=== PATIENT | female | born 1940 | race Caucasian/White ===

== ENCOUNTER 2017-10-04 09:34 | Inpatient (IN) | payer MEDICARE, MEDICAID ==
[~2017-10-04] VITALS: Ht 167.6 cm; Wt 92.0 kg
[~2017-10-04 09:34] MED LIST: AMOXICILLIN500 MG PO; ASPIRIN EC81 MG PO; BACTROBAN2 % EX; BAYER CHEWABLE81 MG PO; DIAZEPAM10 MG OR; DIAZEPAM10 MG PO; FAMOTIDINE20 M1 PO; FLUZONE PEDIATR1 INJ IM; KENALOG-4040 MG/ML IA; LISINOPRIL10 MG PO; LISINOPRIL2.5 MG PO; LOVASTATIN10 MG PO; METFORMIN500 M2 PO; METOPROL TAR25 MG PO; MOTRIN800 MG/TAB PO; NAPROSYN500 MG PO; NITROGLYCER0.4 MG SL; NORCO1 TA1 PO; OMEPRAZOLE20 MG PO; ONE TOUCH ULTRA 100 SC; ONE TOUCH ULTRA LANC SC; PAROXETINE20 MG PO; PAXIL30 MG PO; SIMVASTATIN20 MG PO
--- NOTE | 2017-10-04 09:59 | NUR ---
PT TO WAITING ROOM, ADVISED OF BUSY ER STATUS
--- NOTE | 2017-10-04 10:02 | NUR ---
Pt to room # 8 via W/C
--- NOTE | 2017-10-04 10:30 | NUR ---
INTRODUCED SELF TO PT AND VISITOR. PT REPORTS GENERALIZED ABD PAIN AND N/V STARTING LAST NIGHT. PT REPORTS SIMILIAR SYMPTOMS AND EXPLAINED A SMALL BOWEL OBSTRUCTION. PT ABD SOFT, TENDER TO THE R QUADRENTS. BS HYPOACTIVE. PT AWARE OF PROBABLE PLAN OF CARE AND WAIT TIME. CALL LU WITHIN REACH, WILL CONTINUE TO MONITOR.
[2017-10-04 10:56] LABS: HEMATOCRIT 51.8 % (37.0-47.0); HEMOGLOBIN 17.4 g/dl (12.0-16.0); IMMATURE GRANULOCYTES 0.6 % (0.0-1.0); MEAN CELL VOLUME 89.8 fL CALC (80.0-100.0); MEAN CORPUSCULAR HGB 30.2 pG CALC (26.0-32.0); MEAN CORPUSCULAR HGB CONC 33.6 g/L CALC (32.0-36.0); NEUT# 12.63 thou/uL (2.00-7.15); RED BLOOD COUNT 5.77 mill/uL (4.20-5.60); RED CELL DISTRI WIDTH 13.7 % (11.5-15.5)
--- NOTE | 2017-10-04 11:10 | NUR ---
PT RETURNED FROM CT AND MEDICATED WITH 4 MG OF ZOFRAN IVP AND IV FLUIDS INITIATED. PT RESTING COMFORTABLY IN STRETCHER IN NAD. WILL CONTINUE TO MONITOR. CALL LU WITHIN REACH.
[2017-10-04 11:37] LABS: ALBUMIN 4.9 g/dL (3.2-5.0); ALKALINE PHOSPHATASE 97 u/l (38-126); AMYLASE 68 u/l (30-110); ANION GAP 21 (6-22 (CALC)); BILIRUBIN, TOTAL 0.7 mg/dL (0.0-1.4); BUN 32 mg/dL (8-23); BUN/CREATININE RATIO 22 (12-20 (CALC)); CALCIUM 10.9 mg/dL (8.4-10.2); CARBON DIOXIDE 20 mmol/l (22-30); CHLORIDE 106 mmol/l (95-108); CREATININE 1.4 mg/dL (0.5-1.0); GFR 36 ML/MIN (>=60 (CALC)); GFR FOR AFR.AMER. 44 ML/MIN (>=60 (CALC)); GLUCOSE 236 mg/dL (82-115); LIPASE 78 u/l (23-300); SGOT/AST 25 u/l (9-36); SGPT/ALT 23 u/l (11-66); SODIUM 142 mmol/l (137-146)
--- NOTE | 2017-10-04 11:39 | NUR ---
PT RESTING COMFORTBALY IN STRETCHER WITH EYES CLOSED, PT AWAKENS TO VERBAL STIMULI AND DENIES ANY NEEDS AT THIS TIME. CALL LU WITHIN REACH, WILL CONTINUE TO MONITOR.
[2017-10-04 11:49] LABS: MYOGLOBIN 96 ng/mL (0 - 62)
--- NOTE | 2017-10-04 12:10 | NUR ---
MD AWARE OF ELEVATED LACTIC AND WBC, AWAITING NEW ORDERS.
--- NOTE | 2017-10-04 12:22 | NUR ---
AT [facility] TO DISCUSS RESULTS AND PLAN OF CARE.
--- NOTE | 2017-10-04 13:00 | NUR ---
PT AWARE OF RESULTS AND PLAN FOR ADMISSION AND PLACEMENT OF NG TUBE. PT DENIES ANY NAUSEA AT THIS TIME. WILL CONTINUE TO MONITOR.
--- NOTE | 2017-10-04 13:23 | NUR ---
SBAR PRINTED TO FLOOR
--- NOTE | 2017-10-04 14:00 | NUR ---
16F NG TUBE PLACED IN LEFT NARES. PT TOLERATED WELL. PLACEMENT CONFIRMED BY AUSCULTATION AND AWAITING XRAY TO CONFIRM PLACEMENT. WILL CONTINUE TO MONITOR.
--- NOTE | 2017-10-04 14:10 | NUR ---
PATIENT VOMITED X 1. SUCTIONS TURNED ON AND 400 MLS OF YELLOW BILE COLORED FLUID NOTED.
--- NOTE | 2017-10-04 14:13 | NUR ---
DR DWYER AT BEDSIDE.
--- NOTE | 2017-10-04 14:22 | NUR ---
REPORT CALLED TO MARANDA NEVILLE IN [place].
--- NOTE | 2017-10-04 14:50 | NUR ---
Received pt from ER via stretcher. Pt alert and oriented. NG tube inserted in left nare. Connected to LIS no drainage in canister noted, small amount of greenish colored drainage noted in NG tube. Pt denies any discomfort at the moment. IV fluids infusing without difficulty. Site without redness or edema noted. Instructed pt on room arrangement and call light. Will continue to monitor patient. Call light within reach.
--- NOTE | 2017-10-04 14:55 | NUR ---
Admission Note Report Given to: LIGIA Transported by: Wheelchair X Stretcher Transported with: X Nurse Transporter X Patent IV O2 Ruffler
[2017-10-04 15:45] VITALS: BP 188/99
--- NOTE | 2017-10-04 18:10 | NUR ---
Daughter at bedside. No change in condition. NG tube to LIS no drainage in container, small amount noted in NG tube. Call light within reach.
[2017-10-04 18:15] LABS: URINE BILIRUBIN - DIPSTICK NEGATIVE (NEGATIVE); URINE BLOOD DIPSTICK NEGATIVE (NEGATIVE); URINE COLOR YELLOW; URINE GLUCOSE - DIPSTICK NEGATIVE (NEGATIVE); URINE KETONE NEGATIVE (NEGATIVE); URINE LEUK ESTERASE NEGATIVE (NEGATIVE); URINE PROTEIN - DIPSTICK TRACE mg/dL (NEG-TRACE); URINE SPECIFIC GRAVITY >=1.030; URINE UROBILINOGEN - DIPSTICK 0.2 E.U./dL (0.2)
[2017-10-04 18:16] LABS: URINE CLARITY CLOUDY; URINE NITRITE - DIPSTICK POSITIVE (Negative)
[2017-10-04 18:21] LABS: URINE BACTERIA FEW hpf; URINE SQUAMOUS EPITHELIAL CELL FEW EPI/hpf (0-FEW)
[2017-10-04 19:06] VITALS: BP 172/97
--- NOTE | 2017-10-04 19:10 | NUR ---
REPORT RECEIVED FROM MARANDA NEVILLE;PT APPEARS TO BE SLEEPING WITH EYES CLOSED IN HIGH FOWLERS POSITION WITH DAUGHTER AT BEDSIDE;NO S/S OF DISTRESS NOTED;RESPIRATIONS EVEN AND UNLABORED ON RA;FALL PRECAUTIONS IN PLACE;WILL CONTINUE TO MONITOR
--- NOTE | 2017-10-04 20:00 | NUR ---
PT RESTING IN SEMI FOWLERS POSITION;A&O X3;PT COMPLAINS OF ABDOMINAL PAIN RATING 5/10 ON THE PAIN SCALE AND REQUESTS PRN PAIN MEDICATION;PT MEDICATED WITH PRN DILAUDID 0.5MG IVP;PAIN SCALE AND MEDICATION SCHEDULE REVIEWED;POC DISCUSSED;ASSESSMENT COMPLETED;RESPIRATIONS EVEN AND UNLABORED ON RA;NG TUBE RUNNING TO LIS TO LEFT NARE,PT TOLERATING WELL;BROWN DRAINAGE NOTED;PLACEMENT CHECKED;#20G TO LEFT HAND INFUSING NS @ 125ML/HR,IV SITE APPEARS HEALTHY;ABDOMEN DISTENDED,SOFT AND TENDER IN ALL FOUR QUADS;PT RE-EDUCATED ON NPO DIET STATUS;SKIN INTACT;SAFETY PRECAUTIONS REINFORCED WITH FALL PRECAUTIONS IN PLACE;BED IN LOWEST POSITION WITH CALL LIGHT IN REACH;WILL CONTINUE TO MONITOR
--- NOTE | 2017-10-04 20:12 | NUR ---
AFTER ASSESSING PT SHE BECAME NAUSEOUS;EMESIS BAGS PROVIDED; NOTIFIED AND NEW ORDER FOR ZOFRAN RECEIVED
--- NOTE | 2017-10-04 20:30 | NUR ---
PT MEDICATED WITH ZOFRAN 4MG IVP FOR NAUSEA;WILL MONITOR FOR EFFECT
--- NOTE | 2017-10-04 21:00 | NUR ---
PT REPORTS RELIEF FROM PAIN AND NAUSEA AT THIS TIME;NO NEEDS EXPRESSED BY PT OR FAMILY MEMBER;WILL CONTINUE TO MONITOR
[2017-10-04 21:30] VITALS: BP 137/80
--- NOTE | 2017-10-04 23:30 | NUR ---
PT RESTING IN SEMI FOWLERS POSITION WITH DUAGHTER AT BEDSIDE;PT COMPLAINS OF ABDOMINAL PAIN RATING 4/10 ON THE PAIN SCALE AND REQUESTS PRN PAIN MEDICATION;PT MEDICATED WITH PRN DILAUDID 0.5MG IVP,WILL MONITOR FOR EFFECTIVENESS;NG TUBE PATENT AND PT TOLERATING WELL;COMMODE AT BEDSIDE;FALL PRECAUTIONS IN PLACE WITH CALL LIGHT IN REACH;WILL CONTINUE TO MONITOR
--- NOTE | 2017-10-05 04:00 | NUR ---
PT SLEEPING IN SEMI FOWLERS POSITION WITH DAUGHTER AT BEDSIDE;VS OBTAINED;NG TUBE RUNNING AT LIS,PT TOLERATING WELL;PT VOICES NO COMPLAINTS OF PAIN OR DISCOMFORTS;RESPIRATIONS EVEN AND UNLABORED ON RA;IV FLUIDS INFUSING WELL TO LEFT HAND;PT DENIES ANY NEEDS AT THIS TIME;FALL PRECAUTIONS IN PLACE WITH CALL LIGHT IN REACH;WILL CONTINUE TO MONITOR
[2017-10-05 04:04] VITALS: BP 119/69
[2017-10-05 05:59] LABS: HEMATOCRIT 44.3 % (37.0-47.0); HEMOGLOBIN 14.2 g/dl (12.0-16.0); MEAN CELL VOLUME 94.3 fL CALC (80.0-100.0); MEAN CORPUSCULAR HGB 30.2 pG CALC (26.0-32.0); MEAN CORPUSCULAR HGB CONC 32.1 g/L CALC (32.0-36.0); RED BLOOD COUNT 4.7 mill/uL (4.20-5.60); RED CELL DISTRI WIDTH 13.8 % (11.5-15.5)
[2017-10-05 06:21] LABS: CALCIUM 9.5 mg/dL (8.4-10.2); CREATININE 1.3 mg/dL (0.5-1.0); POTASSIUM 4.5 mmol/l (3.5-5.1)
[2017-10-05 07:30] VITALS: BP 141/79
--- NOTE | 2017-10-05 07:43 | NUR ---
REPORT RECEIVED FROM SG CORNELIUS. PT AWAKENED FOR VS. VSS. DENIES PAIN/NAUSEA. REPORTING OF CONCERNS ENCOURAGED. NGT PLACEMENT CONFIRMED. THICK YELLOW DRAINAGE NOTED, NOT MOVING IN TUBING. TUBE FLUSHED W/ 50 CC WATER. NOW FLOWING WELL. PLAN OF CARE DISCUSSED. CALL LIGHT REVIEWED AND IN REACH. PT STATES UNDERSTANDING.
[2017-10-05 07:49] VITALS: BP 141/77
--- NOTE | 2017-10-05 09:00 | NUR ---
PATIENT ALERT AND ORIENTED X3. SPEECH CLEAR, FACE SYMMETRICAL, PUPILS EQUAL AND REACTIVE. #16 NGT TO LEFT NARE, TUBE PATENT, DRAINING SMALL AMOUNTS OF TEA-COLORED DRAINAGE, INTERMITTENT/LOW SUCTION. HEART SOUNDS REGULAR AND NORMAL RHYTHM. LUNG SOUNDS CLEAR, NO SIGNS OF REPIRATORY DISTRESS. ABD DISTENDED AND SOFT, TENDERNESS UPON PALPATION. BOWEL SOUNDS X4. STRONG RADIAL AND PEDAL PULSES, BRISK CAP REFILLS, REFLEXES PRESENT IN ALL EXTREMITIES. #20 GAUGE IV IN LEFT HAND, SITE FREE FROM REDNESS AND EDEMA, IV PATENT. NO EDEMA OBSERVED IN EXTREMITIES, SKIN IS WARM AND DRY, NO SINGS OF SKIN BREAKDOWN, SKIN INTACT. PT MAINTAINS NPO STATUS, NO COMPLAINTS OF NAUSEA OR PAIN, CALL LIGHT WITHIN REACH.
[2017-10-05 10:42] LABS: CHOLESTEROL HDL RATIO 3.2 (<4.4 (CALC))
[2017-10-05 11:15] VITALS: BP 144/80
--- NOTE | 2017-10-05 11:17 | NUR ---
I called to inform him on the consult for #[id number]. I left a brief message with a call back number at 11:09 am.
--- NOTE | 2017-10-05 11:23 | NUR ---
Dr. Ramirez received the call and called back to confirm the message @ 11:20 am.
--- NOTE | 2017-10-05 11:35 | NUR ---
DR. DWYER IN TO SEE PT AT THIS TIME. PLAN OF CARE UPDATED.
--- NOTE | 2017-10-05 14:44 | NUR ---
PT LEFT FLOOR VIA WC ACCOMPANIED BY VOLUNTEER TO XRAY. STABLE AT THIS TIME.
--- NOTE | 2017-10-05 15:15 | NUR ---
PT REPORTS PASSING GAS.
[2017-10-05 16:48] VITALS: BP 145/75
[2017-10-05 19:00] VITALS: BP 128/71
--- NOTE | 2017-10-05 19:47 | NUR ---
BEDSIDE REPORT RECEIVED FROM MARANDA DELANEY. PT RESTING IN BED COMFORTABLY WITH EYES CLOSED AND DAUGHTER AT BEDSIDE. ALERT AND ORIENTED X 3. DENIES PAIN CURRENTLY. RESPIRATIONS EVEN AND UNLABORED. NG TUBE IN PLACE TO LEFT NARE IS CLAMPED. PT ASSITED TO BATHROOM AT THIS TIME TO VOID; SOME INCONTINENCE NOTED TO RICHI PAD. PLAN OF CARE DISCUSSED. PT ENCOURAGED TO VERBALIZE CONCERNS. STATES UNDERSTANDING. SAFETY MEASURES IN PLACE. CALL LIGHT WITHIN REACH.
--- NOTE | 2017-10-06 | NUR ---
PT AWAKENS SPONTANEOUSLY; NO NEEDS AT THIS TIME. HAS BEEN UP TO RESTROOM TWICE THIS SHIFT FOR WATERY STOOLS. HAS SOME QUESTIONS REGARDING POSSIBLE SURGERY THAT WERE ANSWERED TO SATISFACTION. USES CALL LIGHT FOR ASSISTANCE. SAFETY MEAURES IN PLACE AND DAUGHTER REMAINS AT BEDSIDE THROUGHOUT THE NIGHT. CALL LIGHT WITHIN REACH.
[2017-10-06 04:09] VITALS: BP 161/85
--- NOTE | 2017-10-06 05:18 | NUR ---
PT HAD 3 WATERY STOOLS THROUGHOUT THE NIGHT. USES CALL LIGHT PRN. NO ACUTE CHANGES. NG TUBE REMAINS IN PLACE TO LEFT NARE. SAFETY MEASURES IN PLACE. CALL LIGHT WITHIN REACH.
[2017-10-06 06:15] LABS: HEMATOCRIT 39.8 % (37.0-47.0); HEMOGLOBIN 12.7 g/dl (12.0-16.0); IMMATURE GRANULOCYTES 0.4 % (0.0-1.0); MEAN CELL VOLUME 95.7 fL CALC (80.0-100.0); MEAN CORPUSCULAR HGB 30.5 pG CALC (26.0-32.0); MEAN CORPUSCULAR HGB CONC 31.9 g/L CALC (32.0-36.0); NEUT# 5.27 thou/uL (2.00-7.15); RED BLOOD COUNT 4.16 mill/uL (4.20-5.60)
[2017-10-06 06:22] LABS: CALCIUM 9.1 mg/dL (8.4-10.2); CREATININE 1.2 mg/dL (0.5-1.0); MAGNESIUM 1.8 mg/dL (1.6-2.3); POTASSIUM 4.2 mmol/l (3.5-5.1)
[2017-10-06 07:54] VITALS: BP 168/86
--- NOTE | 2017-10-06 07:59 | NUR ---
PT OFFERED TO WASH UP AT THE SINK. PT STATED DAUGHTER HELPED HER DO THE IMPORTANT THINGS THIS MORNING. CALL LU IN REACH.
--- NOTE | 2017-10-06 08:12 | NUR ---
BEDSIDE REPORT RECEIVED FROM SG ANAND. PT SITTING UPRIGHT IN BED. DENIES PAIN. REPORTS FREQUENT DIARRHEA THROUGHTOUT NIGHT. NO PAIN. TOLERATING ICE CHIPS. NO NAUSEA. NGT CLAMPED AT THIS TIME. REPORTING OF CONCERNS ENCOURAGED. PLAN OF CARE DISCUSSED. CALL LIGHT REVIEWED AND IN REACH. PT STATES UNDERSTANDING.
--- NOTE | 2017-10-06 08:43 | NUR ---
NGT REMOVED PER DR. DWYER.
[2017-10-06 11:00] VITALS: BP 148/79
--- NOTE | 2017-10-06 11:00 | NUR ---
DR. DWYER IN TO SEE PT AT THIS TIME.
[2017-10-06] MEDS ORDERED: METRONIDAZOL500 MG PO (11:27)
[2017-10-06] MEDS ORDERED: CIPROFLOXACN500 MG PO (11:27)
[2017-10-06] MEDS ORDERED: FLORASTOR250 M1 PO (11:27)
[2017-10-06 12:24] VITALS: BP 144/79
--- NOTE | 2017-10-06 13:11 | NUR ---
Pt was seen for discharge medication education. Pt was told about importance of strict adherence with antibiotics and the purpose of taking the probiotic. Pt was eduated on disulfiram-like reaction with metronidazole and cautioned about common adverse effects of antibiotic therapy. Pt is happy to go home and has no further questions or concerns.
--- NOTE | 2017-10-06 16:08 | NUR ---
Discharge instructions given. Patient verbalizes understanding of same. Discharged in stable condition via Wheelchair to Home with family. All belongings sent with pt.
== END 2017-10-06 16:20 | disposition home or self-care (01) | DRG 390 ==
LOC: ED 09:34 → ED-I 10:12 → ED 10:12 → ED-I 12:07 → ED 12:45 → MS2 12:46
PROVIDERS: Emergency Medicine; Nurse Practitioner Family; ADMIT Internal Medicine; ATTEND Internal Medicine
PROC: 3E0234Z Introduction of Serum, Toxoid and Vaccine into Muscle, Percutaneous Approach (ICD-10-PCS; principal; 2017-10-06)
DX: K56.50 Intestinal adhesions [bands], unspecified as to partial versus complete obstruction (principal); J44.9 Chronic obstructive pulmonary disease, unspecified; I13.10 Hypertensive heart and chronic kidney disease without heart failure, with stage 1 through stage 4 chronic kidney disease, or unspecified chronic kidney disease; N18.3 Chronic kidney disease, stage 3 (moderate); I25.10 Atherosclerotic heart disease of native coronary artery without angina pectoris; E78.5 Hyperlipidemia, unspecified; K21.9 Gastro-esophageal reflux disease without esophagitis; K58.9 Irritable bowel syndrome, unspecified; M19.90 Unspecified osteoarthritis, unspecified site; R94.31 Abnormal electrocardiogram [ECG] [EKG]; Z95.1 Presence of aortocoronary bypass graft; Z87.891 Personal history of nicotine dependence; Z23 Encounter for immunization

== ENCOUNTER 2018-01-05 13:18 | Emergency (ER) | payer MEDICARE, MEDICAID ==
[~2018-01-05] VITALS: Ht 167.6 cm; Wt 96.0 kg
[~2018-01-05 13:18] MED LIST changes: +CIPROFLOXACN500 MG PO; +FLORASTOR250 M1 PO; +METRONIDAZOL500 MG PO
[2018-01-05 14:31] LABS: IMMATURE GRANULOCYTES 0.3 % (0.0-1.0); MEAN CELL VOLUME 91.4 fL CALC (80.0-100.0); MEAN CORPUSCULAR HGB 30.3 pG CALC (26.0-32.0); MEAN CORPUSCULAR HGB CONC 33.1 g/L CALC (32.0-36.0); NEUT# 8.12 thou/uL (2.00-7.15); RED BLOOD COUNT 5.38 mill/uL (4.20-5.60); RED CELL DISTRI WIDTH 13.3 % (11.5-15.5)
[2018-01-05 14:32] LABS: HEMATOCRIT 49.2 % (37.0-47.0); HEMOGLOBIN 16.3 g/dl (12.0-16.0)
[2018-01-05 14:47] LABS: ALBUMIN 4.6 g/dL (3.2-5.0); BILIRUBIN, TOTAL 0.7 mg/dL (0.0-1.4); CREATININE 1.2 mg/dL (0.5-1.0); POTASSIUM 4.8 mmol/l (3.5-5.1); TOTAL PROTEIN 7.8 g/dL (6.3-8.2)
[2018-01-05 15:52] LABS: URINE BILIRUBIN - DIPSTICK NEGATIVE (NEGATIVE); URINE BLOOD DIPSTICK TRACE-INTACT (NEGATIVE); URINE COLOR YELLOW; URINE GLUCOSE - DIPSTICK NEGATIVE (NEGATIVE); URINE KETONE NEGATIVE (NEGATIVE); URINE LEUK ESTERASE NEGATIVE (NEGATIVE); URINE NITRITE - DIPSTICK NEGATIVE (Negative); URINE PH 5.5 (4.5-8.0); URINE PROTEIN - DIPSTICK NEGATIVE (NEG-TRACE); URINE SPECIFIC GRAVITY >=1.030; URINE UROBILINOGEN - DIPSTICK 0.2 E.U./dL (0.2)
[2018-01-05 16:12] LABS: URINE CLARITY CLEAR
[2018-01-05] MEDS ORDERED: OMEGA 31000 MG PO (16:59)
[2018-01-05 17:41] VITALS: BP 180/80
== END 2018-01-05 17:49 | disposition home or self-care (01) ==
LOC: ED 13:18
PROVIDERS: Emergency Medicine
DX: R10.13 Epigastric pain (principal); K59.00 Constipation, unspecified; K80.20 Calculus of gallbladder without cholecystitis without obstruction; I10 Essential (primary) hypertension; Z87.19 Personal history of other diseases of the digestive system; R19.7 Diarrhea, unspecified

== ENCOUNTER 2018-05-06 15:09 | Inpatient (IN) | payer MEDICARE, MEDICAID ==
[~2018-05-06] VITALS: Ht 165.1 cm; Wt 95.7 kg
[~2018-05-06 15:09] MED LIST changes: +OMEGA 31000 MG PO
[2018-05-10] VITALS (7 sets, daily range): BP systolic 114–168; BP diastolic 67–92
[2018-05-11] VITALS: BP 111/63
[2018-05-11 04:00] VITALS: BP 107/58
[2018-05-11 05:55] LABS: HEMATOCRIT 40.3 % (37.0-47.0)
[2018-05-11 09:15] VITALS: BP 108/69
[2018-05-11 11:33] VITALS: BP 125/60
[2018-05-11] MEDS ORDERED: PERCOCET 10/31 COMBO PO (11:55)
[2018-05-11] MEDS ORDERED: LEVOTHYROXIN175 MC1 PO (18:18)
[2018-05-14] MEDS ORDERED: LEVAQUIN750 MG PO (08:36)
[2018-05-14] MEDS ORDERED: MEDDOSEPAK PO (08:36)
== END 2018-05-11 14:15 | disposition home health service (06) | DRG 483 ==
LOC: MS2 05-10 09:49
PROVIDERS: ADMIT Orthopaedic Surgery; ATTEND Orthopaedic Surgery
PROC: 0RRJ00Z Replacement of Right Shoulder Joint with Reverse Ball and Socket Synthetic Substitute, Open Approach (ICD-10-PCS; principal; 2018-05-10)
PROC: 0LS30ZZ Reposition Right Upper Arm Tendon, Open Approach (ICD-10-PCS; 2018-05-10)
DX: M19.011 Primary osteoarthritis, right shoulder (principal); M75.121 Complete rotator cuff tear or rupture of right shoulder, not specified as traumatic; S46.111A Strain of muscle, fascia and tendon of long head of biceps, right arm, initial encounter; I12.9 Hypertensive chronic kidney disease with stage 1 through stage 4 chronic kidney disease, or unspecified chronic kidney disease; N18.3 Chronic kidney disease, stage 3 (moderate); I25.10 Atherosclerotic heart disease of native coronary artery without angina pectoris; J44.9 Chronic obstructive pulmonary disease, unspecified; E11.22 Type 2 diabetes mellitus with diabetic chronic kidney disease; F32.9 Major depressive disorder, single episode, unspecified; K58.9 Irritable bowel syndrome, unspecified; X58.XXXA Exposure to other specified factors, initial encounter; Z95.1 Presence of aortocoronary bypass graft; Z95.5 Presence of coronary angioplasty implant and graft; Z95.0 Presence of cardiac pacemaker; Z79.82 Long term (current) use of aspirin; Z87.891 Personal history of nicotine dependence

== ENCOUNTER 2018-07-20 11:27 | Emergency (ER) | payer MEDICARE, MEDICAID ==
[~2018-07-20] VITALS: Ht 165.1 cm; Wt 98.0 kg
[~2018-07-20 11:27] MED LIST changes: +LEVAQUIN750 MG PO; +LEVOTHYROXIN175 MC1 PO; +MEDDOSEPAK PO; +PERCOCET 10/31 COMBO PO
[2018-07-20] MEDS ORDERED: BREWERS YEAST PO (11:40)
[2018-07-20 13:03] VITALS: BP 155/74
== END 2018-07-20 13:08 | disposition home or self-care (01) ==
LOC: ED 11:27
DX: S20.212A Contusion of left front wall of thorax, initial encounter (principal); S20.211A Contusion of right front wall of thorax, initial encounter; I11.0 Hypertensive heart disease with heart failure; I50.9 Heart failure, unspecified; J44.9 Chronic obstructive pulmonary disease, unspecified; E11.9 Type 2 diabetes mellitus without complications; Z95.1 Presence of aortocoronary bypass graft; W05.2XXA Fall from non-moving motorized mobility scooter, initial encounter